=== PATIENT | male | born 1990 | race African-American/Black ===

== ENCOUNTER 2023-06-19 10:31 | Emergency (ER) | payer SELFPAY ==
[~2023-06-19] VITALS: Ht 188 cm; Wt 114.0 kg
[2023-06-19 11:06] VITALS: O2SAT 100
[2023-06-19] MEDS: HYDROCODONE/ACETAMINOPHEN 5/325MG TABLET PO ONE (12:30)
[2023-06-19] MEDS: KETOROLAC 30MG/ML VIAL IM ONE (12:30)
[2023-06-19] MEDS ORDERED: IBUP-2030 MT (14:07)
[2023-06-19] MEDS ORDERED: CYCL10TA21 MT (14:07)
[2023-06-19 14:20] VITALS: BP 134/84; PULSE 81; RESP 18; TEMP 98.5
== END 2023-06-19 14:33 | disposition home or self-care (01) ==
LOC: ER 11:36
DX: M54.2 Cervicalgia (principal); V49.49XA Driver injured in collision with other motor vehicles in traffic accident, initial encounter; Y93.89 Activity, other specified; Y92.89 Other specified places as the place of occurrence of the external cause; Y99.8 Other external cause status
CPT/HCPCS: 99283; 72040; 96372; J1885